=== PATIENT | female | born 1960 | race Caucasian/White ===

== ENCOUNTER 2023-06-05 13:35 | Emergency (ER) | payer MEDICARE, SELFPAY ==
[2023-06-05] VITALS (11 sets, daily range): BP systolic 155–158; BP diastolic 72–78; PULSE 87–97; RESP 14–18; TEMP 36.8; O2SAT 92–95; BMI 42.5
--- NOTE | 2023-06-05 13:37 | W.ED.FALL ---
HPI - Fall General: Chief Complaint: Fall Stated Complaint: fall Time Seen by Provider: 06/05/23 13:37 History of Present Illness: Ms. Ferguson is a 62-year-old lady presented the emergency department due to fall with hip pain. She reports being at her baseline health and was getting up from a tent bathroom when she fell falling backwards landing on her hip. She immediately had pain and difficulty ambulating. She was helped to a sitting position however is continued moderate to severe pain. Denies numbness or tingling. Worse with palpation and movement. No other specific changes in health, exacerbating, or alleviating factors identified. Patient given Zofran, fentanyl, Dilaudid by EMS. Fall from: standing Loss of consciousness: None Symptoms prior to fall: none Location of injury: pelvis Location of injury - extremities: Left: thigh Severity: severe Quality: sharp and spasming Review of Systems General: Reports: 10 or more systems reviewed and unremarkable except in HPI and below PFSH ED PFSH: Medical History (Updated 06/05/23 @ 17:15 by Sly Valentin MD) Diabetes Heart disease Pulmonary fibrosis Rheumatoid arthritis Physical Exam Const: COMMON NORMALS: alert GENERAL APPEARANCE: cooperative and well developed HENMT: COMMON NORMALS: normocephalic and atraumatic HEAD & SCALP: normocephalic and atraumatic OTHER: No mccullough signs or raccoon eyes. No hemotympanum. No otorrhea or rhinorrhea. Jaw alignment normal. Dentition baseline. No obvious bony step-offs. No septal hematoma. No evidence of ocular entrapment. Eye: COMMON NORMALS: conjunctivae normal CONJUNCTIVA: Yes conjunctivae normal SCLERA: sclerae normal Neck/C-Spine: COMMON NORMALS: supple GENERAL: Yes trachea midline Chest: COMMONS NORMALS: normal palpation of entire chest wall Resp: COMMON NORMALS: clear to auscultation bilaterally EFFORT & INSPECTION: Yes able to speak in complete sentences AUSCULTATION: clear to auscultation bilaterally Cardio: COMMON NORMALS: regular rate and regular rhythm RATE: regular rate RHYTHM: regular rhythm GI: COMMON NORMALS: Soft to palpation PALPATION: Yes Soft to palpation and No Tenderness to palpation present (GI) Back/Pelvis: OTHER: No pelvic instability on exam Extremity: NARRATIVE EXTREMITY EXAM: Left hip region and proximal thigh tenderness to palpation. GENERAL: Yes normal exam except as noted and No edema Neuro: COMMON NORMALS: moves all extremities SENSORIUM/ORIENTATION: Yes alert and No Orientation impaired Psych: COMMON NORMALS: mental status grossly normal and Normal thought process present THOUGHT PROCESS: Normal thought process present Course Vital Signs: Vital signs: Vital Signs Temperature 98.3 F 06/05/23 13:36 Pulse Rate 87 06/05/23 16:36 Respiratory Rate 14 06/05/23 16:36 Blood Pressure 158/78 06/05/23 18:00 Pulse Oximetry 94 06/05/23 17:00 Oxygen Delivery Me thod Nasal Cannula 06/05/23 14:17 Oxygen Flow Rate 2 06/05/23 14:17 MDM - Fall Medical Decision Making 62-year-old lady presented to the emergency department due to fall with severe pain. Exam as above. Head to toe exam performed. Labs notable for mild hemoconcentration and leukocytosis which may be reactive. No significant electrolyte derangement. X-rays without clear fracture identified. On reassessment, despite additional analgesia and significant analgesia administered by EMS patient still in significant pain. CT imaging is appropriate given limitations of x-ray. CT negative for fracture. Incidental findings discussed with patient. After additional analgesia patient feels improved and is able to ambulate. Given baseline limitations in ambulation and increased pain patient requested Anderson catheter placement. I discussed risks and requirement for follow-up. Patient verbalized understanding. The results of ED evaluation were discussed with the patient including prescriptions and/or symptomatic cares (if applicable) including appropriate and responsible use, followup plan, and return precautions. The patient verbalized understanding and felt safe for discharge. Medical Records I reviewed the patient's medical records. Lab Data I reviewed the patient's lab results. 06/05/23 13:40 06/05/23 13:40 Radiology Impressions Femur X-Ray 06/05/23 13:52 IMPRESSION: 1. No fracture or dislocation. Hip/Pelvis X-Ray 06/05/23 13:52 IMPRESSION: 1. No fracture noted. Degenerative changes of the left hip. Lumbar Spine CT 06/05/23 14:35 IMPRESSION: 1. No acute fracture or traumatic listhesis. 2. Lower lumbar spine and sacroiliac joint degenerative changes with moderate bilateral neural foraminal narrowing at L4-L5 and L5-S1. Pelvis CT 06/05/23 14:35 IMPRESSION: 1. Mild degenerative changes without acute fracture. 2. Chronic and incidental findings as above, to include atherosclerosis and moderate fat containing supraumbilical hernia. Laboratory Results WBC 14.2 10^3/uL (4.0-10.0) H 06/05/23 13:40 RBC 4.69 10^6/uL (4.1-5.3) 06/05/23 13:40 Hgb 15.4 g/dL (11.5-15.3) H 06/05/23 13:40 Hct 47.1 % (37.0-47.0) H 06/05/23 13:40 MCV 100.4 fl (81-99) H 06/05/23 13:40 MCH 32.8 pg (28.0-34.0) 06/05/23 13:40 MCHC 32.7 g/dL (30.0-36.0) 06/05/23 13:40 RDW 16.5 % (12.1-15.1) H 06/05/23 13:40 Plt Count 297 10^3/cmm (130-400) 06/05/23 13:40 MPV 11.8 fL (7.4-10.4) H 06/05/23 13:40 Neut % (Auto) 86.1 % 06/05/23 13:40 Lymph % (Auto) 5.5 % 06/05/23 13:40 [place] % (Auto) 7.4 % 06/05/23 13:40 Eos % (Auto) 0.0 % 06/05/23 13:40 Baso % (Auto) 0.4 % 06/05/23 13:40 Neut # (Auto) 12.22 10^3/uL (1.8-7.7) H 06/05/23 13:40 Lymph # (Auto) 0.8 10^3/uL (0.8-4.8) 06/05/23 13:40 [place] # (Auto) 1.1 10^3/uL (0.2-0.9) H 06/05/23 13:40 Eos # (Auto) 0.0 10^3/uL (0.0-0.8) 06/05/23 13:40 Baso # (Auto) 0.1 10^3/uL (0.0-0.1) 06/05/23 13:40 Nucleated RBC % (auto) 0.4 % 06/05/23 13:40 Nucleated RBCs # 0.1 /100WBC 06/05/23 13:40 PT 12.70 SECONDS (12.1-14.9) 06/05/23 13:40 INR 0.92 (0.8-1.2) 06/05/23 13:40 APTT 25.3 SECONDS (23.9-36.7) 06/05/23 13:40 Sodium 136 mmol/L (136-145) 06/05/23 13:40 Potassium 5.1 mmol/L (3.5-5.1) 06/05/23 13:40 Chloride 97 mmol/L (98-107) L 06/05/23 13:40 Carbon Dioxide 27 mmol/L (22-29) 06/05/23 13:40 Anion Gap 17.1 (5-19) 06/05/23 13:40 BUN 19 mg/dL (8-23) 06/05/23 13:40 Creatinine 0.8 mg/dL (0.5-0.9) 06/05/23 13:40 GFR Calculation 72.2 mL/min (90-130) L 06/05/23 13:40 Glucose 176 mg/dL (65-115) H 06/05/23 13:40 Calculated Osmolality 289 mOsm/kg (285-295) 06/05/23 13:40 Calcium 9.4 mg/dL (8.5-10.5) 06/05/23 13:40 Discharge Plan Discharge Patient Disposition: Home Clinical Impression: Fall, Acute pain of left hip Condition: Stable Prescriptions: New Levsin 0.125 mg tablet 0.125 mg PO BID PRN (Reason: bladder spasms) Qty: 20 0RF oxycodone 5 mg tablet 5 mg PO Q4H PRN (Reason: pain) Qty: 10 0RF No Action hydrochlorothiazide 25 mg tablet 25 mg PO QAM insulin aspart U-100 100 unit/mL (3 mL) insulin pen See Rx Instructions .ROUTE .COMPLEX Rx Instructions: unit subcutaneously ;use sliding scale tid 30 min prior to main meal. sliding scale:bs 60-150=0 units, 151-200=3 units, 201-250=5 units, 251-300=8 units, 301-350= 10 units, 351-400=12 units, greater than 400-call provider. atorvastatin 40 mg tablet 40 mg PO BEDTIME prednisone 5 mg tablet See Rx Instructions .ROUTE .COMPLEX Rx Instructions: 4 TABLETS DAILY FOR 3 DAYS, 3 TABS DAILY FOR 3 DAYS, 2 TABS DAILY FOR 3 DAYS, THEN 1 TAB DAILY FOR 3 DAYS. clobetasol 0.05 % cream 1 applic TOPICAL BID azathioprine 50 mg tablet See Rx Instructions .ROUTE .COMPLEX Rx Instructions: 3 TABLETS BY MOUTH DAILY IN THE MORNING AND 2 TABLETS IN THE PM. trimethoprim 100 mg tablet 100 mg PO BEDTIME aspirin 81 mg Tablet,Delayed Release (Dr/Ec) 81 mg PO DAILY acetaminophen 500 mg Tablet 1,000 mg PO TID PRN (Reason: Pain) pramipexole 0.5 mg tablet 0.5 mg PO TID metformin 500 mg tablet extended release 24 hr 1,500 mg PO QAM ropinirole 4 mg tablet 4 mg PO BEDTIME Tou[employer] SoloStar U-300 Insulin 300 unit/mL (1.5 mL) insulin pen 35 unit SUBCUT BID Discharge Orders: Discharge ED (Routine); Ordered 06/05/23 Ordered By: Sly Valentin Discharge Diet: Usual diet Discharge Activity: Increase activity as tolerated Patient Instructions: Anderson Catheter Placement and Care (ED), Fall Prevention (ED), Hip Pain (ED), Opioid Safety Activity Restrictions/Additional Instructions: Thank you for visiting the emergency department. You were seen and evaluated for fall with hip pain. No broken bones were identified on imaging. The most likely cause of your symptoms is related to bruising and soft tissue injury. The treatment for this is supportive. You may use elco-rft-obkfnwu medications such as acetaminophen and ibuprofen for pain however please do not exceed the daily recommended dosage as listed on the packaging and please keep in mind that many namebrand medications contain the same active ingredients. Please avoid these medications if previously instructed to do so by another physician due to other underlying medical condition. We will also prescribe oxycodone for pain that is uncontrolled with yedx-tmf-kgdbmlo medications. Use this cautiously as discussed. These follow-up with your primary care provider. Care for catheter and watch for complications as discussed. You will need a urology follow-up. Return for anything that you are concerned about and feel needs emergency department evaluation. 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
--- NOTE | 2023-06-05 13:52 | XR_ITS ---
WS: [id number] Exam: XR hip LT 2-3V wo/w pel* [id number] Date/Time of Exam: 06/05/2023 1:59 PM Reason For Exam: fall, pain No acute fracture or dislocation. Ixhf-st-fisnqint DJD of the joint compartment. Normal soft tissues. The pelvis is intact. XR/XR hip LT 2-3V wo/w pel* [id number] IMPRESSION: 1. No fracture noted. Degenerative changes of the left hip.
--- NOTE | 2023-06-05 13:52 | XR_ITS ---
WS: [id number] Exam: XR femur LT min 2V* [id number] Date/Time of Exam: 06/05/2023 1:57 PM Reason For Exam: fall, mid-prox pain No acute fracture or dislocation. Soft tissues are unremarkable. Degenerative changes at the hip and knee. XR/XR femur LT min 2V* [id number] IMPRESSION: 1. No fracture or dislocation.
[2023-06-05 14:15] LABS: Basophils # 0.1 10^3/uL (0.0-0.1); Basophils % 0.4 %; Hematocrit 47.1 % (37.0-47.0); Hemoglobin 15.4 g/dL (11.5-15.3); Lymphocytes # 0.8 10^3/uL (0.8-4.8); Lymphocytes % 5.5 %; Mean Corpuscular HGB Conc 32.7 g/dL (30.0-36.0); Mean Corpuscular Hemoglobin 32.8 pg (28.0-34.0); Mean Corpuscular Volume 100.4 fl (81-99); Mean Platelet Volume 11.8 fL (7.4-10.4); Monocytes # 1.1 10^3/uL (0.2-0.9); Monocytes % 7.4 %; Neutrophils # 12.22 10^3/uL (1.8-7.7); Neutrophils % 86.1 %; Nucleated Red Blood Cells # 0.1 /100WBC; Nucleated Red Blood Cells % 0.4 %; Platelet Count 297 10^3/cmm (130-400); Red Blood Count 4.69 10^6/uL (4.1-5.3); Red Cell Distribution Width 16.5 % (12.1-15.1); White Blood Count 14.2 10^3/uL (4.0-10.0)
[2023-06-05] MEDS: HYDROmorphone 1 mg/mL INJ 1 mL IVP (14:18)
--- NOTE | 2023-06-05 14:27 | PC.PHAR ---
PT STATES SHE IS ON SPIRIVA HANDIHALER DAILY. UNABLE TO VERIFY THE PATIENT ACCESS PROGRAM.
[2023-06-05 14:35] LABS: INR 0.92 (0.8-1.2)
--- NOTE | 2023-06-05 14:35 | CTR_ITS ---
PROCEDURE INFORMATION: Exam: CT Pelvis Without Contrast; Skeletal Exam date and time: 06/05/2023 2:47 PM Age: 62 years old Clinical indication: Injury or trauma; Blunt trauma (contusions or hematomas); Left; Patient HX: Fall, lt pelvic /hip pain, PT stated sever leg cramps; Additional info: Fall, L pelvic/hip pain TECHNIQUE: Imaging protocol: Computed tomography of the pelvis without contrast. Exam focused on the skeleton. Radiation optimization: All CT scans at this facility use at least one of these dose optimization techniques: automated exposure control; mA and/or kV adjustment per patient size (includes targeted exams where dose is matched to clinical indication); or iterative reconstruction. REPORTING DATA: Count of CT and Cardiac NM exams in prior 12 months: This patient has received 0 known CTs and 0 known cardiac nuclear medicine studies in the 12 months prior to the current study. COMPARISON: CR XR hip LT 2-3V wo/w pel* [id number] 06/05/2023 2:00 PM RADIATION DOSE METRICS: Total DLP (mGy-cm): 1931.43 FINDINGS: Appendix: Normal. Reproductive: The uterus is surgically removed. Vasculature: Mild aortoiliac atherosclerotic calcification without aneurysmal dilatation. Bones/joints: No acute fracture. Mild degenerative changes at the lower lumbar spine and hips. Soft tissues: Moderate fat containing supraumbilical hernia. Small focus of gas within the right anterior abdominal wall subcutaneous tissues likely on the basis of recent injection. Calcified right buttock subcutaneous granuloma. CT/CT pelvis wo con [id number] IMPRESSION: 1. Mild degenerative changes without acute fracture. 2. Chronic and incidental findings as above, to include atherosclerosis and moderate fat containing supraumbilical hernia.
--- NOTE | 2023-06-05 14:35 | CTR_ITS ---
PROCEDURE INFORMATION: Exam: CT Lumbar Spine Without Contrast Exam date and time: 06/05/2023 2:47 PM Age: 62 years old Clinical indication: Injury or trauma; Fall; Blunt trauma (contusions or hematomas) TECHNIQUE: Imaging protocol: Computed tomography of the lumbar spine without contrast. Radiation optimization: All CT scans at this facility use at least one of these dose optimization techniques: automated exposure control; mA and/or kV adjustment per patient size (includes targeted exams where dose is matched to clinical indication); or iterative reconstruction. REPORTING DATA: Count of CT and Cardiac NM exams in prior 12 months: This patient has received 0 known CTs and 0 known cardiac nuclear medicine studies in the 12 months prior to the current study. COMPARISON: CR XR hip LT 2-3V wo/w pel* [id number] 06/05/2023 2:00 PM RADIATION DOSE METRICS: Total DLP (mGy-cm): 848.3 FINDINGS: Bones/joints: No acute fracture. Normal alignment. Moderate discovertebral and facet degenerative changes at L4-L5 and L5-S1 with moderate bilateral neural foraminal narrowing. Milder degenerative changes at L3-L4 cause mild bilateral neural foraminal narrowing. No severe spinal canal stenosis. Mild degenerative changes at the sacroiliac joints. Lungs: Presumed right lung base atelectasis. Gallbladder and bile ducts: Prior cholecystectomy. Vasculature: Mild aortoiliac atherosclerotic calcification without aneurysmal dilatation. Soft tissues: Unremarkable. CT/CT lumbar spine wo con* [id number] IMPRESSION: 1. No acute fracture or traumatic listhesis. 2. Lower lumbar spine and sacroiliac joint degenerative changes with moderate bilateral neural foraminal narrowing at L4-L5 and L5-S1.
[2023-06-05 14:36] LABS: Partial Thromboplastin Time 25.3 SECONDS (23.9-36.7)
[2023-06-05 14:43] LABS: Blood Urea Nitrogen 19 mg/dL (8-23); Calcium 9.4 mg/dL (8.5-10.5); Carbon Dioxide 27 mmol/L (22-29); Chloride 97 mmol/L (98-107); Glomerular Filtration Rate 72.2 mL/min (90-130); Glucose 176 mg/dL (65-115); Osmolality Calculated 289 mOsm/kg (285-295); Sodium 136 mmol/L (136-145)
[2023-06-05 14:46] LABS: Anion Gap 17.1 (5-19); Potassium 5.1 mmol/L (3.5-5.1)
[2023-06-05] MEDS: acetaminophen 500 mg Tablet 1000 MG PO (15:58)
[2023-06-05] MEDS: methocarbamol 750 mg Tablet PO (15:58)
[2023-06-05] MEDS: ketorolac 30 mg/mL INJ 15 MG IVP (15:59)
[2023-06-05] MEDS: oxyCODONE 5 mg IR Tab/Cap PO (16:34)
--- NOTE | 2023-06-13 14:20 | DCPLANNER ---
manager solution was triggered to call patient due to no primary care physician - does not live in the area.
== END 2023-06-05 17:47 | disposition home or self-care (01) ==
PROVIDERS: Emergency Provider Emergency Medicine
DX: M25.552 Pain in left hip (principal); Z79.82 Long term (current) use of aspirin; Z79.84 Long term (current) use of oral hypoglycemic drugs; Z79.4 Long term (current) use of insulin; E11.9 Type 2 diabetes mellitus without complications
CPT/HCPCS: 51702; 72131; 72192; 73502; 73552; 80048; 85025; 85610; 85730; 96374; 96375; 99285; J1170; J1885